=== PATIENT | female | born 1955 | race Caucasian/White ===

== ENCOUNTER 2022-12-07 09:12 | Outpatient (CLI) | payer MEDICARE | END 2022-12-07 09:13 | disposition home or self-care (01) | LOC: CSHMAMMO 09:12 | PROVIDERS: ATTEND Family Medicine | DX: Z12.31 Encounter for screening mammogram for malignant neoplasm of breast (principal); Z80.3 Family history of malignant neoplasm of breast | CPT/HCPCS: 77063; 77067 ==

== ENCOUNTER 2023-07-10 20:41 | Emergency (ER) | payer MEDICARE | END 2023-07-10 22:40 | disposition home or self-care (01) | LOC: CSHERS 20:41 | DX: I10 Essential (primary) hypertension (principal) | CPT/HCPCS: 99283 ==

== ENCOUNTER 2023-10-25 08:55 | Outpatient (CLI) | payer MEDICARE ==
[2023-10-25] MEDS ORDERED: Iopamidol 300 61% 100 ML VIAL FS ONE (10:32)
== END 2023-10-25 08:56 | disposition home or self-care (01) ==
LOC: CSHCT 08:55
PROVIDERS: ATTEND Surgery
DX: R10.30 Lower abdominal pain, unspecified (principal); K76.0 Fatty (change of) liver, not elsewhere classified
CPT/HCPCS: 74177; Q9967

== ENCOUNTER 2023-12-30 13:38 | Outpatient (CLI) | payer MEDICARE | END 2023-12-30 13:39 | disposition home or self-care (01) | LOC: CSHMAMMO 13:38 | PROVIDERS: ATTEND Family Medicine | DX: Z12.31 Encounter for screening mammogram for malignant neoplasm of breast (principal); Z80.3 Family history of malignant neoplasm of breast | CPT/HCPCS: 77063; 77067 ==